=== PATIENT | female | born 1995 ===

== ENCOUNTER 2017-08-23 16:26 | Emergency (ER) | payer OTHER ==
[~2017-08-23] VITALS: Ht 162.6 cm; Wt 63.8 kg
[2017-08-23 16:36] VITALS: BP 108/69
== END 2017-08-23 18:02 | disposition home or self-care (01) ==
LOC: ER 16:26
DX: M54.5 Low back pain (principal); R51 Headache; V49.88XA Car occupant (driver) (passenger) injured in other specified transport accidents, initial encounter; Y93.89 Activity, other specified; Y92.413 State road as the place of occurrence of the external cause; Y99.9 Unspecified external cause status
CPT/HCPCS: 99281